=== PATIENT | male | born 1950 | race African-American/Black ===

== ENCOUNTER 2017-08-15 01:45 | Observation (INO) ==
[2017-08-15] MEDS ORDERED: SODIUM CHLORIDE 0.9% 1,000 ML IV STA (02:52)
[2017-08-15] MEDS ORDERED: KETOROLAC 30 MG/1 ML VIAL IV STA (02:52)
[2017-08-15] MEDS ORDERED: ALUM/MAG/SIMETH/LIDO VISC 1:1 30 ML BOTTLE PO STA (02:52)
[2017-08-15] MEDS ORDERED: MORPHINE 4 MG/1 ML VIAL IV STA (02:52)
[2017-08-15] MEDS ORDERED: ONDANSETRON 4 MG/2 ML VIAL IV STA (02:52)
[2017-08-15] MEDS ORDERED: PANTOPRAZOLE 40 MG VIAL IV STA (02:52)
[2017-08-15 03:47] LABS: Basophils % 0.2 % (0.0-0.8); Eosinophils % 0.5 % (0.00-10.9); Hematocrit 33.4 VOL% (42.0-52.0); Hemoglobin 10.8 GM/DL (14.0-18.0); Immature Granulocytes % 0.3 %; Immature Granulocytes Absolute 0.03 #; Lymphocytes # 0.7 10*3/uL (1.4-4.0); Lymphocytes % 8.6 % (21.2-54.2); Mean Corpuscular HGB Conc 32.3 GM/DL (32-36); Mean Corpuscular Hemoglobin 31 PG (27-34); Mean Corpuscular Volume 95.4 FL (87-102); Mean Platelet Volume 9.3 FL (9.6-12.0); Monocytes # 0.4 10*3/uL (0.11-0.8); Monocytes % 4.3 % (1.7-12.7); Neutrophils # 7.4 10*3/uL (1.4-7.4); Neutrophils % 86.1 % (38.7-73.9); Platelet Count 241 T/CUMM (130-400); Red Cell Distribution Width 12.3 % (9.3-17.3); White Blood Count 8.6 T/CUMM (4-12)
[2017-08-15 04:25] LABS: Alanine Aminotransferase 19 U/L (16-61); Albumin 4.3 G/DL (3.4-5.0); Alkaline Phosphatase 76 U/L (45-117); Amylase 59 U/L (25-115); Aspartate Amino Transferase 16 U/L (0-37); Blood Urea Nitrogen 26 MG/DL (7-18); Calcium 9.1 MG/DL (8.5-10.1); Glucose 85 MG/DL (74-106); Lactic Acid 2.1 MMOL/L (0.4-2.0); Osmolality,Calculated 282.4 MOS/KG (273-304); Potassium 4.1 MMOL/L (3.5-5.1); Sodium 140 MMOL/L (136-145); Total Protein 8.5 G/DL (6.4-8.3); Troponin I Only < 0.015 NG/ML (0.00-0.045)
[2017-08-15 04:31] LABS: Apearance,Urine CLEAR (Clear); Bacteria,Urine Occasional /HPF (Few); Bilirubin,Urine Negative (Negative); Blood, Urine Moderate mg/dL (Negative); Glucose,Urine (UA) Negative (Negative); Hyaline Casts,Urine 6 /LPF (0-3); Ketones,Urine Negative (Negative); Mucus,Urine Occasional /LPF (Occasional); Nitrite,Urine Negative (Negative); Protein,Urine Negative; RBC,Urine 11 /HPF (0-4); Squamous Epithelial Cell,Urine Occasional /HPF (0-10); Urine Color Yellow (Yellow); Urine Specific Gravity 1.011 (1.001-1.035); Urine Urobilinogen < 2.0 EU/DL (0.2-1.0); WBC,Urine 3 /HPF (0-6)
[2017-08-15] MEDS ORDERED: PROMETHAZINE 25 MG/1 ML VIAL IM PRN (07:45)
[2017-08-15] MEDS ORDERED: ONDANSETRON 4 MG/2 ML VIAL IV PRN (07:45)
[2017-08-15] MEDS ORDERED: MORPHINE 4 MG/1 ML VIAL IV PRN (07:45)
[2017-08-15] MEDS: ENOXAPARIN 30 MG/0.3 ML SYRINGE SUBCUT SCH (08:05)
[2017-08-15] MEDS: SODIUM CHLORIDE 0.9% 1,000 ML IV SCH ×2 (08:05→17:37)
[2017-08-15] MEDS: DOCUSATE SODIUM 100 MG CAPSULE PO SCH ×2 (10:31→20:42)
[2017-08-15] MEDS: PANTOPRAZOLE 40 MG TABLET PO SCH (10:31)
[2017-08-16] MEDS: SODIUM CHLORIDE 0.9% 1,000 ML IV SCH ×3 (03:12→15:10)
[2017-08-16 07:36] LABS: Calcium 7.7 MG/DL (8.5-10.1); Osmolality,Calculated 283.1 MOS/KG (273-304); Potassium 4.5 MMOL/L (3.5-5.1)
[2017-08-16] MEDS: PANTOPRAZOLE 40 MG TABLET PO SCH (09:17)
[2017-08-16] MEDS: ENOXAPARIN 30 MG/0.3 ML SYRINGE SUBCUT SCH (09:17)
[2017-08-16] MEDS: DOCUSATE SODIUM 100 MG CAPSULE PO SCH (09:17)
[2017-08-16 14:00] VITALS: BP 117/70
== END 2017-08-16 15:11 | disposition home or self-care (01) | DRG 694 ==
LOC: N.ED 01:45 → N.EDINP 05:15 → INTOOBSV 05:15 → N.5E 06:29
PROVIDERS: ADMIT Internal Medicine; ATTEND Internal Medicine